=== PATIENT | male | born 1950 | race Caucasian/White ===

== ENCOUNTER → 2023-07-14 | Outpatient (REF) | payer MEDICARE, OTHER, SELFPAY | LOC: DHSLP | PROVIDERS: ATTENDING PHYSICIAN Internal Medicine; FAMILY PHYSICIAN Internal Medicine | DX: G47.33 Obstructive sleep apnea (adult) (pediatric) (principal); G47.61 Periodic limb movement disorder | CPT/HCPCS: 95811 ==

== ENCOUNTER → 2023-09-21 09:45 | Outpatient (REF) | payer MEDICARE, OTHER, SELFPAY | LOC: DHSLP 09:45 | PROVIDERS: ATTENDING PHYSICIAN Internal Medicine; FAMILY PHYSICIAN Internal Medicine | DX: G47.33 Obstructive sleep apnea (adult) (pediatric) (principal); G47.31 Primary central sleep apnea; G47.61 Periodic limb movement disorder | CPT/HCPCS: 95811 ==

== ENCOUNTER → 2023-09-23 07:51 | Outpatient (REF) | payer MEDICARE, OTHER, SELFPAY ==
[2023-09-23 08:38] LABS: % Basophils 0.6 % (0-2); % Eosinophils 3.8 % (0-6); % Immature Granulocytes 0.4 % (0-0.5); % Lymphocytes 23.8 % (20.5-51.1); % Monocytes 11.2 % (1.7-9.3); % Neutrophils 60.2 % (42.2-75.2); Absolute Basophils 0.1 10^3/uL (0-0.2); Absolute Eosinophils 0.3 10^3/uL (0-0.7); Absolute Lymphocytes 1.8 10^3/uL (1.2-3.4); Absolute Monocytes 0.9 10^3/uL (0.1-0.6); Absolute Neutrophils 4.6 10^3/uL (1.4-6.5); Hemoglobin 14.3 g/dL (13.0-18.0); Mean Corp Hgb Conc. 33.3 g/dL (33.0-37.0); Mean Corpuscular Hgb 29.5 pg (27.0-31.0); Mean Corpuscular Volume 88.8 fL (80.0-94.0); Mean Platelet Volume 9.4 fL (7.4-10.4); Nucleated Red Blood Cells % 0 % (-); Platelet Count 210 10^3/uL (130-400); Red Blood Cell Count 4.84 10^6/uL (4.70-6.10); Red Cell Dist. Width 14.4 % (11.5-14.5); White Blood Cell Count 7.7 10^3/uL (4.8-10.8)
[2023-09-23 08:45] LABS: ALT (SGPT) 21 U/L (0-50); AST (SGOT) 29 U/L (17-59); Albumin 4.1 g/dl (3.5-5.0); Alkaline Phosphatase 88 U/L (38-126); Blood Urea Nitrogen 18 mg/dl (9-20); Calcium 9.2 mg/dl (8.4-10.2); Carbon Dioxide 31 mmol/L (22-30); Chloride 105 mmol/L (98-107); Glucose 102 mg/dl (70-99); Potassium 4.1 mmol/L (3.5-5.1); Sodium 139 mmol/L (135-145); Total Bilirubin 0.8 mg/dl (0.2-1.3); Total Protein 6.7 g/dl (6.3-8.2); eGFR > 60.00
[2023-09-23 08:50] LABS: INR 1.09; PT 13.9 Sec (11.4-14.6)
== END ==
LOC: SDSPAT 07:51
PROVIDERS: ATTENDING PHYSICIAN Internal Medicine Cardiovascular Disease; FAMILY PHYSICIAN Internal Medicine; OTHER PHYSICIAN Internal Medicine Cardiovascular Disease
DX: Z01.818 Encounter for other preprocedural examination (principal); I48.0 Paroxysmal atrial fibrillation
CPT/HCPCS: 36415; 75572; 80053; 83735; 85025; 85610; 86850; 86900; 86901; 93005; Q9967

== ENCOUNTER 2023-10-05 05:58 | Day surgery (SDC) | payer MEDICARE, OTHER, SELFPAY ==
[2023-09-23 08:12] VITALS: BMI 32.3
[2023-10-05] VITALS (13 sets, daily range): BP systolic 100–142; BP diastolic 55–105; BMI 32.3
[2023-10-05] MEDS: NSS 500 IV (06:45)
--- NOTE | 2023-10-05 07:29 | ITS.CL.ABL ---
Remote Pilot Operator - Ablation
Ablation
Procedure Report:
Primary Subeditor: Felicity Whittaker MD
Procedure Date: 10/05/2023
Patient History:
Patient is a pleasant 73-year-old male with a past medical history significant for hypertension, BPH, dyslipidemia, osteoporosis, anxiety, sleep apnea, and symptomatic paroxysmal atrial fibrillation. Patient with symptomatic conversion pauses
associated with transition from atrial fibrillation to sinus rhythm noted on his implantable loop recorder.
See H&P for complete details.
Indication:
Symptomatic paroxysmal atrial fibrillation
Conversion pauses associated with transition from atrial fibrillation to sinus rhythm
Arrhythmia Specific History:
Prior Medical Therapies for Rate and Rhythm Control:
X Beta-monique
[ ] Calcium channel-monique
[ ] Amiodarone
[ ] Dronederone
[ ] Sotalol
[ ] Flecainide
[ ] Dofetilide
X Options limited by bradycardia
[ ] Options limited by comorbid renal disease
Prior Procedural Therapies for AF/AFL:
[ ] Cardioversion
[ ] Pulmonary Vein Isolation
[ ] Posterior Wall Isolation
[ ] Additional lines (Specify)
[ ] Surgical Negrete-MAZE or PVI (Specify)
Procedure Performed:
X AF ablation procedure (12534) -- includes LA/CS pacing, trans-septal, 3D mapping, + ICE
[ ] +IV drug (32244)
[ ] +Other Arrhythmia (92598)
[ ] +Other AF Line/ablation (63621)
Risks and expected recovery has been explained in detail. Alternative options have been explored, and in a shared-decision making fashion we have decided that this was the most appropriate procedure.
Method
NPO status confirmed. Grounding pad applied. Defibrillator pads applied. Continuous surface ECG, pulse oximetry, and blood pressure were monitored. Procedure was performed under general anesthesia, with anesthesia services.
Both groins were clipped, prepped with Chloraprep, and draped in sterile fashion. Time out was called. Local anesthesia administered with bupivacaine. The right and left femoral veins were accessed for catheter placement, using ultrasound guidance,
micro-puncture needle/wire, and modified seldinger technique. X sheaths were placed. The following catheters were used:
[ ] Tacticath SE (D/F Curve) ablation catheter
X Viewflex 9Fr ICE catheter
X Inquiry decapolar 6Fr diagnostic catheter
[ ] CRD Hex 6Fr
[ ] Arctic Front Advance Cryoballoon ([ ]28mm[ ]23mm)
[ ] Achieve Advance mapping catheter ([ ]15mm[ ]20mm)
X FlexCath Contour 10 Fr with PulseSelect PFA Catheter
X Advisor HD Grid Mapping Catheter, SE
[ ] AcusSnipSnap AcuNav 8 Fr ICE catheter
[ ]Other: [ ]
Intracardiac ultrasound (ICE) was carefully advanced into the right atrium to guide sheath placement over a J-wire, catheter placement, guide trans-septal puncture, identify potential complications, identify anatomic structures and ensure proper
contact between ablation catheter and tissue.
Heparin was given prior to trans-septal puncture. Heparin was given to achieve and maintain a target ACT of 300-400 seconds throughout the procedure.
Trans-septal access was performed under ICE guidance. The trans-septal puncture was performed with a SafeSept wire through a Brockenbrough needle assembly through the steerable sheath. The wire was visualized as it entered the LSPV and system
advanced under ICE guidance and fluoroscopy into the LA. The Brockenbrough needle assembly, SafeSept wire and sheath dilator were removed under negative pressure. LA pressure was measured and recorded.
ICE and 3D mapping was performed to identify relevant cardiac structures. A careful 3D map was created to assess for regions of low-voltage and abnormal electrogram signals using HD grid mapping catheter and PulseSelect catheter. Additional mapping
was performed as outlined below.
Prior to ablation, glycopyrrolate was provided. PulseSelect catheter was advanced over J-wire to the ostium of each vein. Pulmonary vein isolation was performed with ostial and antral lesions in a circumferential manner. Contact was visualized via
EAM, ICE, fluoroscopy, and EGM signals. Following completion of ablation lesions, a post-ablation voltage/activation map was performed in atrial pacing. Entrance and exit block were confirmed for each vein.
Catheter and sheath were removed from the left atrium and post-ablation intracardiac echo evaluation was consistent with pre-ablation with no changes and no pericardial effusion and there is no left atrial thrombus or left ventricle thrombus seen.
Electrophysiology study was performed. Hemostasis was obtained with figure of 8 stitch for each groin and with manual pressure. Protamine was used for reversal. Of note, patient was noted to have sinus bradycardia with intermittent junctional escape
40-60 bpm. No evidence of AVB or significant pauses during procedure with general anesthesia.
Estimated Blood Loss
10 mL
Complications
None
Fluoroscopy: 2.5 minutes; 15.28 mGy; DAP 2.15
Baseline Intervals:
Rhythm: SB
KS: 122 ms
QRS: 98 ms
QT: 520 ms
Post-Procedure Intervals:
KS: 167 ms
QRS: 98 ms
QT: 486 ms
QTc: 457 ms
A-A: 1133 ms
R-R: 1133 ms
AVWB: 480 ms
AVNERP: 600/410 ms
AERP: 600/300 ms
Recommendations
- Bedrest with straight-leg precautions as ordered
- Anticipate same day discharge if patient meeting clinical metrics
- Resume home medications as indicated
- Ok to resume anticoagulation tonight if patient and groin sites stable
- PPI daily for 30 days
- Plan for follow-up in office with Dr. Whittaker
Hesham Pollock DO
Clinical Cardiac Disintegrator
cc: Felicity Whittaker MD; Melchor Tyler MD
[2023-10-05 08:37] LABS: ACT-LR - POC 322 Seconds (116-155)
[2023-10-05 08:51] LABS: ACT-LR - POC 322 Seconds (116-155)
[2023-10-05 09:07] LABS: ACT-LR - POC 363 Seconds (116-155)
[2023-10-05 09:28] LABS: ACT-LR - POC 342 Seconds (116-155)
[2023-10-05 09:46] LABS: ACT-LR - POC 152 Seconds (116-155)
[2023-10-05] MEDS: TYLENOL 650 MG PO (11:13)
--- NOTE | 2023-10-05 13:30 | W.PN.UPDATE ---
Update Note
Progress Note Update
73 yo WM s/p PVI (same day). He feels good, no cp, sob, michael clears, b/l groins c/d/i with F08, EKG SR. He will continue OAC Eliquis dose at 4pm at home. He will continue metoprolol. Activity restrictions reviewed. He will f/u Dr. Madrid in 2 mo. He
is for d/c home after 230p if groins stable and able to void.
Patient is a pleasant 73-year-old male with a past medical history significant for hypertension, BPH, dyslipidemia, osteoporosis, anxiety, sleep apnea, and symptomatic paroxysmal atrial fibrillation. Patient with symptomatic conversion pauses
associated with transition from atrial fibrillation to sinus rhythm noted on his implantable loop recorder.
See H&P for complete details.
Indication:
Symptomatic paroxysmal atrial fibrillation
Conversion pauses associated with transition from atrial fibrillation to sinus rhythm
Procedure Performed:
X AF ablation procedure (57960) -- includes LA/CS pacing, trans-septal, 3D mapping, + ICE
[ ] +IV drug (48473)
[ ] +Other Arrhythmia (43529)
[ ] +Other AF Line/ablation (89001)
== END 2023-10-05 14:48 | disposition home or self-care (01) ==
LOC: CATH 05:58
PROVIDERS: ATTENDING PHYSICIAN Internal Medicine Cardiovascular Disease; FAMILY PHYSICIAN Internal Medicine; OTHER PHYSICIAN Internal Medicine Cardiovascular Disease
DX: I48.0 Paroxysmal atrial fibrillation (principal); R55 Syncope and collapse; R06.09 Other forms of dyspnea; R53.83 Other fatigue; I49.5 Sick sinus syndrome; Z79.899 Other long term (current) drug therapy; Z79.01 Long term (current) use of anticoagulants; G47.33 Obstructive sleep apnea (adult) (pediatric); K21.9 Gastro-esophageal reflux disease without esophagitis; E78.5 Hyperlipidemia, unspecified; K58.9 Irritable bowel syndrome, unspecified; I10 Essential (primary) hypertension; F32.A Depression, unspecified; F41.9 Anxiety disorder, unspecified; Z90.49 Acquired absence of other specified parts of digestive tract; N40.0 Benign prostatic hyperplasia without lower urinary tract symptoms; M81.0 Age-related osteoporosis without current pathological fracture
CPT/HCPCS: C1733; C1732; C1769; C1766; 76937; 85347; 86900; 86901; 93005; 93656